=== PATIENT | female | born 1945 | race Caucasian/White ===

== ENCOUNTER 2019-03-30 09:51 | Inpatient (IN) | payer OTHER ==
[~2019-03-30] VITALS: Ht 152.4 cm; Wt 65.9 kg
[2019-03-30 15:48] VITALS: BP 160/90
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
[2019-03-30 21:02] VITALS: BP 135/89
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
[2019-03-31 08:00] VITALS: BP 139/89
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
[2019-03-31 19:33] VITALS: BP 142/75
--- NOTE | 2019-03-31 20:31 | NUR ---
PT STATED SHE TAKES 3 TABS OF BISACODYL NIGHTLY. SHE HAD A ORDER FOR ONE TAB PRN, PT STATED 1 TABLET WILL NOT WORK IT WILL MAKE HER SICK AND SHE NEEDS 3. PT TOLD DR TIMBER HARVESTER OPERATOR WOULD BE NOTIFIED. SUSAN CALLED AND ORDER RECEIVED. PT CALLED HER FAMILY AND ASKED THEM TO FIND HER ANOTHER FACILITY BECAUSE SHE WAS NOT RECEIVING 3 BISACODYL AT NIGHT. [employer] NOTIFIED OF THIS PHONE CALL DURING REQUEST FOR ORDER CHANGE.
--- NOTE | 2019-03-31 20:48 | NUR ---
copaxone box taken to pharmacy, 5 injections in box.
--- NOTE | 2019-03-31 21:04 | NUR ---
PHARMACY WILL STORE MS MEDICATION AND DISPENSE, IT NEEDS TO BE REFRIGERATED.
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
[2019-04-01 07:55] VITALS: BP 113/72
[2019-04-01 10:02] VITALS: BP 113/72
--- NOTE | 2019-04-01 10:08 | NUR ---
ASSUMED CARE AT 0700 THIS MORNING. PT. REMAINED IN HER ROOM UNTIL BREAKFAST. SHE DID EAT BREAKFAST IN THE DINING ROOM. SHE WAS COOPERATIVE WITH TAKING MEDICINE. SHE ATTENDED MORNING GROUP.
--- NOTE | 2019-04-01 14:54 | NUR ---
Pt called requesting that his be discharged today due to her having appointment coming up. SW mention that she would have to speak with the Dr. Brown to see if appropriate to be d/c.
--- NOTE | 2019-04-01 15:17 | NUR ---
MOODY and Dr. Gutierrez left a voicemail for pt concerning d/c. Dr. Gutierrez provided contact information to return call.
[2019-04-01 19:35] VITALS: BP 141/80
--- NOTE | 2019-04-01 21:04 | NUR ---
PT RESTING IN BED READING BIBLE UPON ARRIVAL TO SHIFT. PT COMPLIANT WTIH MEDICATIONS AND HS SNACK. PT VERBALIZED DC TOMORROW . RE ORDERED EYE DROPS FOR HS AND AM DOSES. [facility] CONTACT AND SMILING WHEN TALKING WITH STAFF.
--- NOTE | 2019-04-01 22:49 | NUR ---
PHARMACY PROVIDED NEW EYE DROPS, PT ASLEEP.
--- NOTE | 2019-04-02 01:54 | NUR ---
PT AWAKENED REPORTING BILAT LEGS ACHING, PACED HALLS FOR RELIEF AND ASKED FOR PRN TYLENOL AND PROVIDED.
[2019-04-02 08:44] VITALS: BP 117/71
[2019-04-02 09:45] VITALS: BP 117/71
[2019-04-02] MEDS ORDERED: BACLOFEN 10MG T10 MG PO (11:00)
[2019-04-02] MEDS ORDERED: NEURONTIN 300300 M1 PO (11:01)
[2019-04-02] MEDS ORDERED: COZAAR100 MG PO (11:01)
[2019-04-02] MEDS ORDERED: CYMBALTA20 MG PO (11:02)
[2019-04-02] MEDS ORDERED: TOPAMAX 25 MG T25 M1 PO (11:02)
--- NOTE | 2019-04-02 11:02 | NUR ---
DISCHARGE INSTRUCTIONS REVIEWED WITH PT AND -SHE STATES UNDERSTANDING AND DENIES ANY QUESTIONS OR CONCERNS REGARDING MEDS OR FOLLOW UP. DENIES C/O PAIN AND DISCOMFORT-DENIES SI/SH/HI AND IS ABLE TO IDENTIFY TRIGGERS AND ALTERNATIVE HEALTHY COPING SKILLS. REVIEWED WITH PT EMERGENCY CONTACT NUMBERS IF EXPERIENCING SI. DC VIA WHEELCHAIR ACCOMPNIED BY STAFF AND -SMILING AND APPRECIATIVE OF CARE UPON DC
[2019-04-02] MEDS ORDERED: BRIMONIDINE TART5 ML OPHTHALMIC (11:03)
[2019-04-02] MEDS ORDERED: TIMOLOL MALEATE5 M1 OPHTHALMIC (11:04)
[2019-04-02] MEDS ORDERED: CALTRATE-600 W1 EACH PO (11:04)
[2019-04-02] MEDS ORDERED: PROTONIX40 M1 PO (11:06)
[2019-04-02] MEDS ORDERED: VITAMIN D5000 UNIT PO (11:06)
[2019-04-02] MEDS ORDERED: VITAMIN B-12500 MCG PO (11:06)
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
--- NOTE | 2019-04-02 11:32 | NUR ---
Patient Name: KAVON FREEMAN Admission Date: 03/30/19 DISCHARGE PLAN: Pt will be d'c home with . Care Assessment: Pt was assessed by Dr. Gutierrez, and diagnosed with Major Depression with Unspecified Psychosis. Level II Assessment: None Transportation: Pt will be transported home by . Special Instructions/Notes: Pt will need a Php program, and continuance care with psychiatrist. DISCHARGE TO FACILITY: home Facility: Phone: Fax: Address: Contact Name: Phone: PCP: Primary doctor Psychiatrist: [facility] on April 05, 2019 at 11:00am
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
== END 2019-04-02 11:30 | disposition home or self-care (01) | DRG 885 ==
LOC: SBH 09:51
PROVIDERS: ADMIT Psychiatry & Neurology Psychiatry
DX: F32.1 Major depressive disorder, single episode, moderate (principal); H40.9 Unspecified glaucoma; G25.81 Restless legs syndrome; T42.6X2A Poisoning by other antiepileptic and sedative-hypnotic drugs, intentional self-harm, initial encounter; T46.5X2A Poisoning by other antihypertensive drugs, intentional self-harm, initial encounter; I25.10 Atherosclerotic heart disease of native coronary artery without angina pectoris; G35 Multiple sclerosis; G47.00 Insomnia, unspecified; I10 Essential (primary) hypertension; F68.8 Other specified disorders of adult personality and behavior; Z98.42 Cataract extraction status, left eye; Z98.41 Cataract extraction status, right eye; Z82.3 Family history of stroke; Z82.49 Family history of ischemic heart disease and other diseases of the circulatory system; Y92.89 Other specified places as the place of occurrence of the external cause
CPT/HCPCS: 10880